=== PATIENT | male | born 1965 | race American Indian/Alaskan Native ===

== ENCOUNTER 2018-11-27 19:10 | Emergency (ER) | payer SELFPAY ==
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
[2018-11-28 00:54] VITALS: BP 142/76
== END 2018-11-28 00:55 | disposition home or self-care (01) ==
LOC: ED 19:10
DX: I10 Essential (primary) hypertension (principal); Z76.0 Encounter for issue of repeat prescription; F41.9 Anxiety disorder, unspecified; Z90.49 Acquired absence of other specified parts of digestive tract
CPT/HCPCS: 99282

== ENCOUNTER 2022-01-24 06:21 | Emergency (ER) | payer SELFPAY ==
[2022-01-24] MEDS ORDERED: TETRACAINE 0.5% OPHTH SOLN 4ML OU ONE (08:18)
[2022-01-24] MEDS ORDERED: FLUORESCEIN 1 MG STRIP OP ONE (08:18)
[2022-01-24] MEDS ORDERED: oxyCODONE /ACETAMINOPHEN 5-325MG TAB PO ONE (08:41)
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
[2022-01-24 09:13] VITALS: BP 145/83
== END 2022-01-24 12:09 | disposition short-term general hospital (02) ==
LOC: ED 06:21
DX: H54.7 Unspecified visual loss (principal); I10 Essential (primary) hypertension; F41.9 Anxiety disorder, unspecified; Z79.899 Other long term (current) drug therapy
CPT/HCPCS: 99284